=== PATIENT | male | born 1970 | race Two or more races ===

== ENCOUNTER 2021-09-23 14:02 | Outpatient (CLI) | payer OTHER ==
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
== END 2021-09-23 14:03 | disposition home or self-care (01) ==
LOC: SC 14:02
PROVIDERS: ATTEND Nurse Practitioner Family
DX: G47.8 Other sleep disorders (principal); R06.81 Apnea, not elsewhere classified; R06.83 Snoring; R41.89 Other symptoms and signs involving cognitive functions and awareness; E66.9 Obesity, unspecified; Z68.34 Body mass index [BMI] 34.0-34.9, adult
CPT/HCPCS: 99203; 99212

== ENCOUNTER 2021-10-01 14:23 | Outpatient (CLI) | payer OTHER | END 2021-10-01 14:24 | disposition home or self-care (01) | LOC: SC 14:23 | PROVIDERS: ATTEND Nurse Practitioner Family | DX: G47.33 Obstructive sleep apnea (adult) (pediatric) (principal); R06.02 Shortness of breath | CPT/HCPCS: 95806 ==

== ENCOUNTER 2021-10-22 16:12 | Outpatient (CLI) | payer OTHER ==
[2021-10-22 16:52] VITALS: BP 126/73
--- NOTE | 2021-10-22 16:52 | SLEEP CARE CONSULTATION ---
Information from patient questionnaire entered by Sara Baltazar MA. I have reviewed and concur with the information entered by Sara Baltazar MA. This document represents the service I personally performed and the decisions made by , Sabrina Ratliff ARNP. History of Present Illness Service Date and Time: 10/22/2021 1612 Initial [place] Sleepiness Scale score: 3 (2021) Current [place] Sleepiness Scale score: 5 (2021) Additional HPI information: DEBRA YANES returns for follow up and results of the recently performed home sleep study. I explained the pathophysiology behind obstructive sleep apnea. We then spent quite a bit of time discussing different treatment options. For mild obstructive sleep apnea, surgery and oral appliance are alternatives to nasal CPAP therapy but in moderate or severe cases, nasal CPAP is the most effective and reliable treatment. Because apnea is primarily in supine position, then positional management therapy could be effective. Methods discussed such as positioning with pillows to prevent supine sleep. I reviewed the impact of weight changes on sleep apnea and strongly recommended losing weight. After some discussion, the patient opted to go with the nasal CPAP therapy. Nasal autoCPAP set at 4-15 cmH20 will be ordered with rationale explained. A manual titration study will be ordered if unable to find optimal pressure with office adjustments. I explained how CPAP machine works and what to expect when using the machine. Using CPAP every night in order to get used to it was emphasized. Patient advised to put CPAP mask on before getting into bed so as not to fall asleep w ithout CPAP. To assist acclimation to CPAP use, it could also be used for a short time during day while reading or watching TV. The patient was instructed to call the CPAP supplier to discuss any mechanical problem that may occur. If the mask given is uncomfortable or is difficult to keep on through the night even with adjustment, contact the CPAP supplier as many will replace with another mask style if notified before 30 days. If snoring or perceives is not getting enough air or too much air from the machine, notify this office. [facility] patient education PAP tips reviewed and given to patient. Patient counseled not drink alcohol less than 4 hours before bedtime as it can increase snoring and apnea. Patient was cautioned about risks of drowsy driving until sleepiness symptoms resolve. Sleep Study - Results Type of Sleep Study: Home sleep study (F/U HOME STUDY) Prior sleep studies: No Polysomnography/Home Sleep Study results: Physician Impression: The quality of the study is good. The length of the study is [id number] (< 240 minutes). Please also see the tabulated and graphic data. 1. Obstructive Sleep Apnea-Hypopnea (ICD-10 G47.33), severe, with an AHI of 34.4/hr and raheem SaO2 of 74%. During the study, the patient had 43 apneas (42 obstructive, 0 central, 1 mixed) and 52 hypopneas. The longest episode lasted 52.0 seconds. The respiratory events occurred more frequently during supine sleep (supine AHI was 83.3 and non-supine, 13.91). 2. Hypoxemia (ICD-10 R09.02), moderate, with the lowest oxygen saturation of 74 % and 10.0 minutes with SaO2 under 90%. Baseline oxygen saturation was normal (Average oxygen saturation was 94%). Allergies and Home Medications Known drug allergies: Yes (lisinopril) Drug allergies reviewed: Yes Home medication list reviewed: Yes (no changes) Allergy and home medication list: Allergies No Known Drug Allergies Allergy (Verified 06/16/13 09:19) Review of Systems Review of systems same as previous: Yes (no changes) Physical Exam Vital signs obtained and entered by: CLAY SUÁREZ Blood Pressure: 126/73 (right, pule 80 , resp 16, ) Heart Rate: 82 O2 Saturation: 97 (with cloth masks) Height: 5 ft 8 in Weight: 233 lb (w/o clothes) Body Mass Index: 35.4 BMI Classification: Obese Impression and Plan 1. Obstructive Sleep Apnea-Hypopnea Syndrome, severe, with lowest oxygen saturation of 74%. Obviously this is the cause of the patients symptoms of unrefreshed sleep, and excessive daytime sleepiness. Positive pressure therapy could benefit cerebrovascular disease (stroke), anxiety and borderline diabetes. As mentioned above, the patient will be started on nasal autoCPAP therapy with pressure set at 5-20 cmH2O. A manual titration study will be completed if unable to find optimal treatment pressure with office adjustments. Compliance guidelines also reviewed. A copy of compliance guidelines will be given for reference at check out. Because the apnea is more severe supine, I instructed to avoid sleeping supine using pillow positioning until able to start CPAP use. 2. Hypoxemia, moderate, with the lowest oxygen saturation of 74 % and 10.0 minutes with SaO2 under 90%. His baseline oxygen saturation was normal with an average oxygen saturation of 94%. * Nasal auto CPAP therapy, pressure at 5-20 cm H2O. * Attempt to lose weight. * Avoid alcohol consumption near bedtime. * Avoid supine sleep until using CPAP. * The patient is again cautioned about driving until sleepiness completely resolves. * Return one month after CPAP obtained. I will assess response to therapy and compliance at that time. Counseling Topics: Weight loss health impact Visit Type: In Office Time Spent with Patient (minutes): 20 Provider Statement: I spent 100% of the Face to Face Visit with the patient with greater than 50% spent counseling the patient and coordination of care.
== END 2021-10-22 16:13 | disposition home or self-care (01) ==
LOC: SC 16:12
PROVIDERS: ATTEND Nurse Practitioner Family
DX: G47.33 Obstructive sleep apnea (adult) (pediatric) (principal); R09.02 Hypoxemia; E66.9 Obesity, unspecified; Z68.35 Body mass index [BMI] 35.0-35.9, adult
CPT/HCPCS: 99212; 99213